=== PATIENT | female | born 1955 | race African-American/Black ===

== ENCOUNTER 2017-01-07 13:41 | Emergency (ER) | payer BC ==
[~2017-01-07] VITALS: Ht 157.5 cm; Wt 100.0 kg
[~2017-01-07 13:41] MED LIST: CARV12.52 PO; FURO40TA PO; HYDR-2768 PO; LEVEMIR SC; LISI-363 PO; METF500 PO
[2017-01-07 13:43] VITALS: BP 232/104; PULSE 91; RESP 17; TEMP 98.2; O2SAT 98
[2017-01-07] MEDS ORDERED: cloNIDine HCL 0.1 MG TAB PO ONE (14:15)
[2017-01-07 14:45] VITALS: BP 181/78; PULSE 76; RESP 18; O2SAT 96
[2017-01-07 15:42] VITALS: BP 167/69; PULSE 74; RESP 18; O2SAT 98
--- NOTE | 2017-01-07 15:50 | PD ---
HPI Chief Complaint: Hypertension Time Seen by Provider: 14:07 Travel History International Travel<30 days: No Contact w/Intl Traveler<30days: No Traveled to known affect area: No History of Present Illness HPI 61-year-old female arrives to the ER complaining of hypertension. She had a cough and viral URI type symptoms a few days ago and took gsvy-mil-imwtfet medications. She saw her primary care provider Dr. Chavarria who gave her an inhaler and her blood pressure increased significantly thereafter. This morning she woke up with floaters in her field of vision. She reports doubling her lisinopril dosage which did not help much. 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) Tonsillectomy: Yes Social History Alcohol Use: Yes (OCASS.) Tobacco Use: No Substance Use: No Allergies-Medications (Allergen,Severity, Reaction): Coded Allergies: Penicillin (Verified Allergy, Unknown, 01/07/17) Reported Meds & Prescriptions Reported Meds & Active Scripts Active Clonidine (Clonidine HCl) 0.1 Mg Tab 0.1 Mg PO BID Levemir (Insulin Detemir) Inj 15 Units SC BID 30 Days Reported Glucophage 500 mg (Metformin HCl) 500 Mg Tab 500 Mg PO BIDPC Carvedilol 12.5 mg (Carvedilol) 12.5 Mg Tab 12.5 Mg PO BID Furosemide 40 Mg Tab 40 Mg PO DAILY PRN Hctz (Hydrochlorothiazide) 25 Mg Tab 25 Mg PO DAILY Lisinopril 20 mg (Lisinopril) 20 Mg Tab 1 Tab PO DAILY Review of Systems Except as stated in HPI: all other systems reviewed are Neg Physical Exam Narrative GENERAL: 61-year-old female pleasant well-nourished well-developed SKIN: Focused skin assessment warm/dry. HEAD: Atraumatic. Normocephalic. EYES: R eye prosthesis. Pupils equal and round. No scleral icterus. No injection or drainage. ENT: No nasal bleeding or discharge. Mucous membranes pink and moist. NECK: Trachea midline. No JVD. CARDIOVASCULAR: Regular rate and rhythm. No murmur appreciated. RESPIRATORY: No accessory muscle use. Clear to auscultation. Breath sounds equal bilaterally. GASTROINTESTINAL: Abdomen soft, non-tender, nondistended. Hepatic and splenic margins not palpable. MUSCULOSKELETAL: No obvious deformities. No clubbing. No cyanosis. No edema. NEUROLOGICAL: Awake and alert. No obvious cranial nerve deficits. Motor grossly within normal limits. Normal speech. PSYCHIATRIC: Appropriate mood and affect; insight and judgment normal. Data Data Last Documented VS Vital Signs Date Time Temp Pulse Resp B/P Pulse Ox O2 Delivery O2 Flow Rate FiO2 01/07/17 15:42 74 18 167/69 98 Room Air 01/07/17 13:43 98.2 Vital signs reviewed Orders Clonidine (Catapres) (01/07/17 14:15) [facility] Medical Decision Making Medical Screen Exam Complete: Yes Emergency Medical Condition: Yes Medical Record Reviewed: Yes Differential Diagnosis Hypertensive crisis, hypertensive emergency, vision change Narrative Course Clonidine given with good effect. At 355pm upon reassessment the patient is resting comfortably and feels better, is alert and in no distress. The patient s results and examination findings were discussed. The repeat examination is unremarkable and benign. The history, exam, diagnostic testing, and current condition do not suggest any significant pathology to warrant further testing, continued ED treatment, admission, or surgical evaluation at this point. The vital signs have been stable. The patient does not have uncontrollable pain, intractable vomiting, or other significant symptoms. The patient's condition is stable and appropriate for discharge. The patient will pursue further outpatient evaluation with a primary care physician or other designated or consulting physician as indicated in the discharge instructions. The patient expressed understanding and was agreeable with this plan. Diagnosis Primary Impression: Hypertension Qualified Code: I10 - Essential hypertension Referrals: DR CHAVARRIA 2 days Derek Vinson MD 2 days Vivien Gayle MD 2 days Additional Instructions: You have a choice when it comes to health care, and we are glad that you chose [facility]. Hopefully, we have met your expectations on today's visit. You are welcome to return to [facility] at any time, as we are committed to meeting the health care needs of our community. Med/Other Pt SpecificInfo: No Change to Meds Scripts Clonidine 0.1 Mg Tab0.1 Mg PO BID #5 TAB Ref 0 Prov:Abhishek Hills MD 01/07/17 Disposition: 01 DISCHARGE HOME Condition: Stable Abhishek Hills MD January 07, 2017 15:50
[2017-01-07] MEDS ORDERED: CLON0.1T PO (15:58)
[2017-01-07 16:07] VITALS: BP 162/68
== END 2017-01-07 16:13 | disposition home or self-care (01) ==
LOC: NEPC 13:41
DX: I10 Essential (primary) hypertension (principal); R05 Cough; I50.9 Heart failure, unspecified; E11.9 Type 2 diabetes mellitus without complications
CPT/HCPCS: 99283

== ENCOUNTER → 2017-04-25 | Day surgery (SDC) | payer BC ==
[~2017-04-25] MED LIST changes: +ACETAMINOPHEN 325 MG TAB ONE; +CLON0.1T PO; +DEXAMETHASONE SOD PHOS 4 MG/ML VIAL ONE; +DEXTROSE 50% IN WATER 50 ML SYRINGE ONE; +EPINEPHrine HCL (1:1000) 1 MG/ML VIAL ONE; +MIDAZOLAM HCL 2 MG/2 ML VIAL ONE; +MOXIFLOXACIN 0.5% OPHT SOLN 3 ML BTL ONE; +ONDANSETRON HCL 4 MG/2 ML VIAL IV PUSH ONE; +PHENYLEPHRINE HCL 10% OPTH SOLN 5 ML BTL ONE; +PROPOFOL 200 MG/20 ML AMP IV ONE; +SODIUM CHLORIDE 0.9% INJ 10 ML ONE; +TETRACAINE 0.5% OPTH SOLN 15 ML BTL ONE; +TOBRAMYCIN/DEXAMETHASONE OPTH OINT 3.5 GM TUBE ONE; +TRIAMCINOLONE ACETONIDE 40 MG/ML VIAL ONE; +ceFAZolin INJ 1,000 MG VIAL ONE; +prednisoLONE ACETATE 1% OPHT SUSP 5 ML BTL ONE
--- NOTE | 2017-05-03 06:59 | MP ---
cc: DANAY JACKSON MD DATE OF SURGERY 04/25/2017 PREOPERATIVE DIAGNOSIS Non-clearing vitreous hemorrhage, tractional retinal detachment, proliferative diabetic retinopathy left eye. POSTOPERATIVE DIAGNOSIS Non-clearing vitreous hemorrhage, tractional retinal detachment, proliferative diabetic retinopathy left eye. PROCEDURE Pars plana vitrectomy, tractional retinal detachment repair, endolaser, air-fluid exchange, insertion of 18% SF6 gas left eye. ANESTHESIA Dr. Leahy. General BLOOD LOSS Less than 1 cc. COMPLICATIONS None. INDICATIONS FOR PROCEDURE This is a delightful patient with severe proliferative diabetic retinopathy in her left eye. The patient had a non-clearing vitreous hemorrhage for some time and elected for surgical correction. The patient understands underlying traction with associated retinal detachment to repair simultaneously. The patient understood the risks, benefits and alternatives to surgery and wishes to proceed. PROCEDURE NOTE After informed consent was carried out, the left eye was prepped and draped in sterile fashion with Betadine in the conjunctival fornix. A three port pars vitrectomy was established with self-retaining infusion cannula. Core vitreous was evacuated along with vitreous hemorrhage. The traction surrounding, originating from the optic nerve and going superonasal was carefully dissected and delaminated from underlying retina. The underlying retina was noted to have renewed mobility and now placed against underlying retina pigment epithelium. Scleral depression examination revealed no tears or detachments. Endolaser was applied in surrounding areas of dissection in a PRP fashion. A partial air-fluid exchange was carried out and 18% SF6 gas was inserted. The trocars were removed and sclerotomies closed with 7-0 Vicryl suture. The conjunctiva was reapproximated with 6-0 plain gut. The eye was patched with Tobramycin ointment. The patient was brought to the recovery room in stable condition. She is to continue followup with [facility] for her postoperative care. MD JESSICA Salmon/ELISHA /12:54 AM /6:46 AM DAWSON
== END | disposition home or self-care (01) ==
LOC: ESDC 08:49
PROVIDERS: ATTEND Ophthalmology
DX: H43.12 Vitreous hemorrhage, left eye (principal); E11.3522 Type 2 diabetes mellitus with proliferative diabetic retinopathy with traction retinal detachment involving the macula, left eye; Z79.4 Long term (current) use of insulin
CPT/HCPCS: 00145; 67108; 82948; J0171; J0690; J1100; J2250; J2405; J3010; J3301

== ENCOUNTER → 2017-11-03 | Outpatient (CLI) | payer BC ==
[~2017-11-03] MED LIST changes: -ACETAMINOPHEN 325 MG TAB ONE; -DEXAMETHASONE SOD PHOS 4 MG/ML VIAL ONE; -DEXTROSE 50% IN WATER 50 ML SYRINGE ONE; -EPINEPHrine HCL (1:1000) 1 MG/ML VIAL ONE; -MIDAZOLAM HCL 2 MG/2 ML VIAL ONE; -MOXIFLOXACIN 0.5% OPHT SOLN 3 ML BTL ONE; -ONDANSETRON HCL 4 MG/2 ML VIAL IV PUSH ONE; -PHENYLEPHRINE HCL 10% OPTH SOLN 5 ML BTL ONE; -PROPOFOL 200 MG/20 ML AMP IV ONE; -SODIUM CHLORIDE 0.9% INJ 10 ML ONE; -TETRACAINE 0.5% OPTH SOLN 15 ML BTL ONE; -TOBRAMYCIN/DEXAMETHASONE OPTH OINT 3.5 GM TUBE ONE; -TRIAMCINOLONE ACETONIDE 40 MG/ML VIAL ONE; -ceFAZolin INJ 1,000 MG VIAL ONE; -prednisoLONE ACETATE 1% OPHT SUSP 5 ML BTL ONE
[2017-11-03 14:01] LABS: PROTHROMBIN TIME - PATIENT 10.2 SEC (9.8-11.6)
[2017-11-03 14:10] LABS: AUTOMATED NEUTROPHIL # 6.8 TH/MM3 (1.8-7.7); BASOPHIL # 0.1 TH/MM3 (0-0.2); BASOPHIL % 1.3 % (0.0-2.0); EOSINOPHIL # 0.2 TH/MM3 (0-0.4); EOSINOPHIL % 2.5 % (0.0-4.0); HEMATOCRIT 34.7 % (35.0-46.0); HEMOGLOBIN 12.2 GM/DL (11.6-15.3); LYMPH % 23.4 % (9.0-44.0); LYMPHOCYTE # 2.4 TH/MM3 (1.0-4.8); MEAN CELL VOLUME 77.6 FL (80.0-100.0); MEAN CORPUSCULAR HEMOGLOBIN 27.2 PG (27.0-34.0); MEAN CORPUSCULAR HGB CONC 35.1 % (32.0-36.0); MEAN PLATELET VOLUME 8.7 FL (7.0-11.0); MONO % 6.1 % (0.0-8.0); MONOCYTE # 0.6 TH/MM3 (0-0.9); NEUT % 66.7 % (16.0-70.0); PLATELET COUNT 412 TH/MM3 (150-450); RED BLOOD COUNT 4.47 MIL/MM3 (4.00-5.30); RED CELL DISTRIBUTION WIDTH 15.1 % (11.6-17.2); WHITE BLOOD COUNT 10.1 TH/MM3 (4.0-11.0)
== END ==
LOC: CLAB 13:31
PROVIDERS: ATTEND Ophthalmology
DX: Z01.818 Encounter for other preprocedural examination (principal)
CPT/HCPCS: 36415; 85025; 85610; 85730

== ENCOUNTER → 2017-11-14 | Outpatient (CLI) | payer BC ==
--- NOTE | 2017-11-14 14:38 | EKG ---
Date Performed: 11/14/2017 Time Performed: 11:56:18 PTAGE: 62 years EKG: Sinus rhythm . Poor R wave progression - probable normal variant Low QRS voltages in precordial leads Borderline E CG PREVIOUS TRACING : 06/15/2016 14.06 No significant change from previous tracing noted. DOCTOR: Maxim Mcclendon Interpretating Date/Time 11/14/2017 14:37:59
== END ==
LOC: HCAV 11:42
PROVIDERS: ATTEND Ophthalmology
DX: Z01.810 Encounter for preprocedural cardiovascular examination (principal)
CPT/HCPCS: 93005